=== PATIENT | female | born 1990 | race African-American/Black ===

== ENCOUNTER 2017-06-11 17:23 | Emergency (ER) | payer BC ==
[~2017-06-11] VITALS: Ht 162.6 cm; Wt 90.0 kg
[2017-06-11] MEDS ORDERED: ALBUTEROL (0.083%) 2.5MG/3ML NEB HHN ONE (20:45)
[2017-06-11 23:39] LABS: BASOPHILS % 0.8 % (0.0-2.0); HEMATOCRIT. 34.5 % (36.0-48.0); HEMOGLOBIN. 11.5 g/dL (12.0-16.0); LYMPHOCYTES % 43.2 % (20.0-50.0); MEAN CORPUSCULAR HEMOGLOBIN 27.6 pg (28.0-32.0); MEAN CORPUSCULAR VOLUME 83.1 fL (81.0-99.0); MEAN PLATELET VOLUME 8.3 fl (7.4-10.4); MONOCYTES % 8.2 % (2.0-8.0); NEUTROPHILS % 44.8 % (40.0-76.0); PLATELET 311 x1000/uL (130-400); RED BLOOD CELL COUNT 4.15 mill/uL (4.2-5.4); RED CELL DISTRIBUTION WIDTH 12.7 % (11.6-14.6)
[2017-06-11 23:41] LABS: CHLORIDE 104 mEq/L (98-107)
[2017-06-11 23:45] LABS: PARTIAL THROMBOPLASTIN TIME 24.2 sec (23.4-31.0); PROTHROMBIN TIME 10.4 sec (9.4-11.6)
[2017-06-12] MEDS ORDERED: IBUPROFEN 600MG TABLET PO ONE (00:30)
[2017-06-12 02:04] VITALS: BP 124/72
== END 2017-06-12 02:08 | disposition home or self-care (01) ==
LOC: ER 18:46
DX: R07.89 Other chest pain (principal); Z90.49 Acquired absence of other specified parts of digestive tract
CPT/HCPCS: 36415; 71045; 80053; 81025; 83690; 85025; 85610; 85730; 93005; 93970; 94640; 99285; J7611; Z7610

== ENCOUNTER 2018-12-07 11:46 | Emergency (ER) | payer BC ==
[~2018-12-07] VITALS: Ht 165.1 cm; Wt 82.0 kg
[2018-12-07 14:04] VITALS: BP 124/85
== END 2018-12-07 14:00 | disposition home or self-care (01) ==
LOC: ER 11:46
DX: M25.572 Pain in left ankle and joints of left foot (principal); Z90.49 Acquired absence of other specified parts of digestive tract
CPT/HCPCS: 73610; 81025; 99283